=== PATIENT | female | born 2005 | race Two or more races ===

== ENCOUNTER 2023-09-01 18:53 | Emergency (ER) | payer MEDICAID, OTHER ==
[2023-09-01 20:00] VITALS: PULSE 89; RESP 18; O2SAT 97
[2023-09-01 20:27] LABS: Basophils # (auto) 0 10 ^3/uL (0-0.2); Basophils % (auto) 0.2 % (0.0-2.0); Eosinophils # (auto) 0.1 10 ^3/uL (0-0.8); Eosinophils % (auto) 1.4 % (0.0-7.0); Hematocrit 40.6 % (36.0-46.0); Lymphocytes # (auto) 2.4 10 ^3/uL (0.4-5.4); Lymphocytes % (auto) 22.9 % (10.0-50.0); Mean Corpuscular Hgb Conc. 31.9 g/dL (32.0-36.0); Monocytes # (auto) 0.6 10 ^3/uL (0-1.3); Monocytes % (auto) 5.5 % (0.0-12.0); Neutrophils # (auto) 7.3 10 ^3/uL (1.6-8.6); Red Blood Cells 4.32 10^6/uL (4.0-5.20); Red Cell Distribution Width 14.4 % (11.8-14.3); White Blood Cell 10.5 10^3/uL (4.4-10.8)
[2023-09-01 21:35] LABS: Chloride 108 mmol/L (98-107); Potassium 4.1 mmol/L (3.5-5.1); Sodium 141 mmol/L (136-145)
[2023-09-01 21:36] LABS: Anion Gap 7 (5-15); Calcium 9.6 mg/dL (8.5-10.1); Carbon Dioxide 26 mmol/L (20-30)
[2023-09-01 21:41] LABS: BUN/Creatinine Ratio 19.3 (10.0-20.0); Blood Urea Nitrogen 16 mg/dL (9-23); Glucose 116 mg/dL (74-106)
[2023-09-01] MEDS: LIDOCAINE 2%HCL (LOCAL ANESTH.) INJ 10ml MDV IJ ONE ×2 (22:00→22:16)
[2023-09-01] MEDS: LIDOCAINE 2%HCL (LOCAL ANESTH.) INJ 10ml MDV ONE (22:15)
[2023-09-01 22:25] VITALS: TEMP 98.8
[2023-09-01] MEDS ORDERED: CEPH250C PO (23:10)
[2023-09-01] MEDS ORDERED: NAPR-1335 PO (23:11)
[2023-09-01] MEDS: MORPHINE SULFATE 4 MG/ML SYR/VIAL IV ONE (23:36)
[2023-09-01 23:40] VITALS: O2SAT 96
[2023-09-02 00:11] VITALS: BP 129/75; PULSE 76; RESP 16
== END 2023-09-02 00:15 | disposition home or self-care (01) ==
LOC: EDBD 18:53 → ER 18:53
DX: S02.40DA Maxillary fracture, left side, initial encounter for closed fracture (principal); R10.2 Pelvic and perineal pain; S01.511A Laceration without foreign body of lip, initial encounter; W18.09XA Striking against other object with subsequent fall, initial encounter; Y93.89 Activity, other specified; Y92.89 Other specified places as the place of occurrence of the external cause; Y99.8 Other external cause status
CPT/HCPCS: 12052; 36415; 70450; 70486; 72125; 80048; 84702; 85025; 96374; 99285; J2001; J2270

== ENCOUNTER 2023-09-04 09:46 | Emergency (ER) | payer MEDICAID ==
[~2023-09-04] VITALS: Ht 160 cm; Wt 81.0 kg
[~2023-09-04 09:46] MED LIST: CEPH250C PO; NAPR-1335 PO
[2023-09-04 10:00] VITALS: TEMP 98
[2023-09-04 10:02] VITALS: BP 109/71; PULSE 75; RESP 16; O2SAT 96
== END 2023-09-04 11:40 | disposition left against medical advice (07) ==
LOC: ER 09:46
DX: R04.0 Epistaxis (principal); Z53.21 Procedure and treatment not carried out due to patient leaving prior to being seen by health care provider